=== PATIENT | male | born 1985 | race Caucasian/White ===

== ENCOUNTER 2020-12-07 05:45 | Emergency (ER) | payer BC ==
[~2020-12-07] VITALS: Ht 188 cm; Wt 97.5 kg
--- NOTE | 2020-12-07 05:46 | NUR ---
MD Bazan in room to do MSE.
--- NOTE | 2020-12-07 05:50 | NUR ---
Pacheco kemp in ED - 12/07/20 at 0624 by CECILIA Pt. arrived from home. Chief complaint heart palpitations, anxiety. Pt. has
[2020-12-07] MEDS ORDERED: IV NORMAL SALINE 1000 ML BAG IV ONE ×2 (06:00→06:15)
[2020-12-07] MEDS ORDERED: methylPREDNISolone SOD SUCC 125 MG/2 ML VIAL ONE (06:08)
[2020-12-07 06:13] LABS: BASOPHILS % (AUTO) 0.4 % (0.0-2.0); EOSINOPHILS % (AUTO) 0.3 % (0.0-7.0); HEMATOCRIT 45.3 % (36.7-47.1); HEMOGLOBIN 15.2 g/dL (12.5-16.3); LYMPHOCYTES # (AUTO) 2.7 K/uL (20.0-40.0); LYMPHOCYTES % (AUTO) 24.4 % (20.5-51.5); MEAN CORPUSCULAR HEMOGLOBIN 28.4 uug (23.8-33.4); MEAN CORPUSCULAR HGB CONC 34 g/dL (32.5-36.3); MEAN CORPUSCULAR VOLUME 84.7 fL (73.0-96.2); MONOCYTES # (AUTO) 0.8 K/uL (2.0-10.0); MONOCYTES % (AUTO) 6.9 % (0.0-11.0); NEUTROPHILS # (AUTO) 7.4 K/uL (1.8-8.9); PLATELET COUNT (AUTO) 282 K/uL (152-348); RED BLOOD CELL COUNT(AUTO) 5.35 MIL/uL (4.06-5.63); WHITE BLOOD COUNT (AUTO) 10.9 K/uL (3.6-10.2)
[2020-12-07] MEDS ORDERED: methylPREDNISolone SOD SUCC 125 MG/2 ML VIAL IV ONE (06:15)
[2020-12-07 06:19] LABS: POTASSIUM 3.8 mmol/L (3.5-5.1)
[2020-12-07] MEDS ORDERED: PRED20TA PO ×2 (06:24→06:28)
--- NOTE | 2020-12-07 06:24 | NUR ---
Pt. arrived from home. Chief complaint heart palpitations and anxiety. Pt. stated he was having "anaphylaxis" without throat swelling or shortness of breath. Pt. has history of mast cell syndrome and GERD. Pt. states he took claritin at home. Pt. has epi pen but denies using it. Pt. tachycardic with nsr. MARTINEZ at bedside.
--- NOTE | 2020-12-07 06:28 | NUR ---
Pt. resting in bed. Pt. states he is feeling less anxious now. Vss.
--- NOTE | 2020-12-07 06:50 | NUR ---
Gave report to SAURAV Torres for continuity of care.
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
[2020-12-07 08:03] VITALS: BP 134/78
== END 2020-12-07 08:05 | disposition home or self-care (01) ==
LOC: ER 05:48
DX: D89.40 Mast cell activation, unspecified (principal); R00.0 Tachycardia, unspecified; R00.2 Palpitations
CPT/HCPCS: 36415; 80048; 84484; 85025; 93005; 96361; 96374; 99284; J2930; 70030-TC; A4663; J7030